=== PATIENT | female | born 1995 | race American Indian/Alaskan Native ===

== ENCOUNTER 2017-09-25 12:11 | Emergency (ER) | payer OTHER ==
[2017-09-25 12:22] VITALS: BP 133/77; PULSE 67; TEMP 97.8; BMI 28.1
--- NOTE | 2017-09-25 13:42 | PDOC ---
History of Present Illness - General Chief Complaint: Cold Symptoms Stated Complaint: COLD SYMPTOMS Time Seen by Provider: 09/25/17 13:24 History Source: Patient Exam Limitations: No Limitations - History of Present Illness Initial Comments: 09/25/17 13:32 c/o cough and stuffy nose for 2 days no fever no abd pain or vomiting. Pt took aleve this AM. Pt asking for a work note for calling out sick today. Past History - Past Medical History Allergies/Adverse Reactions: Allergies Allergy/AdvReac Type Severity Reaction Status Date / Time No Known Allergies Allergy Verified 09/25/17 12:18 Home Medications: Ambulatory Orders NK [No Known Home Medication] 09/25/17 COPD: No Other medical history: NONE - Suicide/Smoking/Psychosocial Hx Smoking History: Never smoked Information on smoking cessation initiated: No Hx Alcohol Use: No Drug/Substance Use Hx: No Substance Use Type: None Respiratory Specific PMHX - Complaint Specific PMHX Angina: No Bronchitis: No Pneumonia: No Pulmonary Embolus: No TB (Tuberculosis): No Review of Systems - Review of Systems Able to Perform ROS?: Yes Is the patient limited Somali proficient: No Constitutional: No: Symptoms Reported HEENTM: Yes: Nose Congestion Respiratory: Yes: Cough. No: Wheezing, Productive cough *Physical Exam - Vital Signs Last Vital Signs Temp Pulse Resp BP Pulse Ox 97.8 F 67 18 133/77 100 09/25/17 12:19 09/25/17 12:19 09/25/17 12:19 09/25/17 12:19 09/25/17 12:19 - Physical Exam General Appearance: Yes: Nourished, Appropriately Dressed HEENT: positive: EOMI, BENTLEY, Normal ENT Inspection, TMs Normal, Pharynx Normal Neck: positive: Supple. negative: Tender Respiratory/Chest: positive: Lungs Clear, Normal Breath Sounds. negative: Decreased Breath Sounds, Paradoxal Breathing, Crackles, Rales, Stridor, Wheezing , Hyperresonant, Dullness, Plerual Rub Cardiovascular: positive: Regular Rhythm, Regular Rate Gastrointestinal/Abdominal: positive: Normal Bowel Sounds, Soft. negative: Tender Musculoskeletal: positive: Normal Inspection Extremity: positive: Normal Capillary Refill, Normal Inspection, Normal Range of Motion. negative: Tender Integumentary: positive: Normal Color, Dry, Warm. negative: Rash, Swelling Neurologic: positive: Fully Oriented, Alert, Normal Mood/Affect, Normal Response , Motor Strength 5 Medical Decision Making - Medical Decision Making 09/25/17 13:42 cc: nasal congestion and cough no fever no chills non toxic will discharge home with supportive care *DC/Admit/Observation/Transfer Diagnosis at time of Disposition: Common cold virus - Discharge Dispostion Disposition: HOME Condition at time of disposition: Good - Referrals Referrals: Shayna Rodriguez MD [Primary Care Provider] - - Patient Instructions Printed Discharge Instructions: DI for Common Cold Additional Instructions: drink pleanty of water to stay well hydrated get a cool mist humidifier to use in your bedroom get over the counter Airborne or any vitamin C and Zinc supplememnt also get over the counter nasal spray for congestion such as lizbeth-synephrine or Afrin and use as directed on the bottle return to ER for any worsening symptoms - Post Discharge Activity Forms/Work/School Notes: Back to School
== END 2017-09-25 13:52 | disposition home or self-care (01) ==
LOC: JERFT 12:11
DX: J00 Acute nasopharyngitis [common cold] (principal)
CPT/HCPCS: 99281-25

== ENCOUNTER 2017-11-28 21:09 | Emergency (ER) | payer OTHER ==
[2017-11-28 22:57] VITALS: TEMP 98.7; BMI 27.3
--- NOTE | 2017-11-29 01:31 | PDOC ---
History of Present Illness - General History Source: Patient Exam Limitations: No Limitations - History of Present Illness Initial Comments: 11/29/17 01:32 The patient is a 22 year old female with no significant past medical history who presents to the ED complaining of 4-5 days of subjective fever, nonproductive fever, and nasal congestion. Fever is improved today. No abdominal pain, vomiting, or diarrhea. No chest pain or sore throat. No wheezing. Several family members at home are sick with similar symptoms. <Cheyenne Castaneda - Last Filed: 11/29/17 01:32> <María Elena Delgado - Last Filed: 11/29/17 01:44> - General Chief Complaint: Cold Symptoms Stated Complaint: FEVER Time Seen by Provider: 11/29/17 00:36 Past History <Cheyenne Castaneda - Last Filed: 11/29/17 01:32> - Past Medical History COPD: No - Suicide/Smoking/Psychosocial Hx Smoking History: Never smoked Have you smoked in the past 12 months: No Information on smoking cessation initiated: No Hx Alcohol Use: No Drug/Substance Use Hx: No Substance Use Type: None <María Elena Delgado - Last Filed: 11/29/17 01:44> - Past Medical History Allergies/Adverse Reactions: Allergies Allergy/AdvReac Type Severity Reaction Status Date / Time No Known Allergies Allergy Verified 09/25/17 12:18 Home Medications: Ambulatory Orders Oxymetazoline 0.05% Nasal Soln [Afrin -] 1 spray NS BID #1 spraybtl 09/25/17 Respiratory Specific PMHX - Complaint Specific PMHX Angina: No Bronchitis: No Pneumonia: No Pulmonary Embolus: No TB (Tuberculosis): No <María Elena Delgado - Last Filed: 11/29/17 01:44> Review of Systems - Review of Systems Able to Perform ROS?: Yes Comments:: 11/29/17 01:35 CONSTITUTIONAL: Present: fever (improved) Absent: no fatigue EYES: Absent: visual changes ENT: Present: nasal congestion Absent: ear pain, no sore throat CARDIOVASCULAR: Absent: chest pain, no palpitations RESPIRATORY: Present: cough Absent: no SOB GI: Absent: abdominal pain, no nausea, no vomiting, no constipation, no diarrhea GENITOURINARY: Absent: dysuria, no frequency, no hematuria MUSKULOSKELETAL: Absent: back pain, no arthralgia, no myalgia SKIN: Absent: rash NEURO: Absent: headache <Cheyenne Castaneda - Last Filed: 11/29/17 01:32> *Physical Exam - Vital Signs Last Vital Signs Temp Pulse Resp BP Pulse Ox 98.7 F 87 20 134/84 100 11/28/17 22:55 11/28/17 22:55 11/28/17 22:55 11/28/17 22:55 11/28/17 22:55 - Physical Exam Comments: 11/29/17 01:37 GENERAL: Well developed, well nourished. Awake and alert. No acute distress. HEENT: Normocephalic, atraumatic. PERRLA, EOMI. No conjunctival pallor. Sclera are non- icteric. Moist mucous membranes. Oropharynx is clear. NECK: Supple. Full ROM. No JVD. Carotid pulses 2+ and symmetric, without bruits. No thyromegaly. No lymphadenopathy. CARDIOVASCULAR: Regular rate and rhythm. No murmurs, rubs, or gallops. Distal pulses are 2+ and symmetric. PULMONARY: No evidence of respiratory distress. Lungs clear to auscultation bilaterally. No wheezing, rales or rhonchi. ABDOMINAL: Soft. Non-tender. Non-distended. No rebound or guarding. MUSCULOSKELETAL Normal range of motion at all joints. No bony deformities or tenderness. No CVA tenderness. EXTREMITIES: No cyanosis. No clubbing. No edema. No calf tenderness. SKIN: Warm and dry. Normal capillary refill. No rashes. No jaundice. PSYCHIATRIC: Cooperative. Good eye contact. Appropriate mood and affect. <Cheyenne Castaneda - Last Filed: 11/29/17 01:32> - Vital Signs Last Vital Signs Temp Pulse Resp BP Pulse Ox 98.7 F 87 20 134/84 100 11/28/17 22:55 11/28/17 22:55 11/28/17 22:55 11/28/17 22:55 11/28/17 22:55 <María Elena Delgado - Last Filed: 11/29/17 01:44> Medical Decision Making - Medical Decision Making 11/29/17 01:41 22-year-old female presents because she's had some coughing, nasal congestion and fever since Monday. Patient is well-nourished, well-developed 22-year-old female in no acute respiratory distress. Lungs are clear to auscultation bilaterally. She has no focal neural deficits. She was stable vital signs. Since she has been sick for more than 72 hours. She will be NOT be tested for influenza because Tamiflu would not be efficacious at this time and she has no breathing difficulties <María Elena Delgado - Last Filed: 11/29/17 01:44> *DC/Admit/Observation/Transfer - Attestations Scribe Attestion: 11/29/17 01:37 Documentation prepared by Cheyenne Castaneda, acting as medical coding instructor for María Elena Delgado MD. <Cheyenne Castaneda - Last Filed: 11/29/17 01:32> <María Elena Delgado - Last Filed: 11/29/17 01:44> Diagnosis at time of Disposition: Cough, Nasal congestion with rhinorrhea - Discharge Dispostion Disposition: HOME Condition at time of disposition: Stable - Referrals Referrals: Shayna Rodriguez MD [Primary Care Provider] - - Patient Instructions Printed Discharge Instructions: DI for Viral Upper Respiratory Infection -- Adult, DI for Common Cold Additional Instructions: Please try to stay hydrated,take tylenol for fever or muscle aches and rest Return if you have any difficulties breathing - Post Discharge Activity
[2017-11-29 02:21] VITALS: BP 115/65; PULSE 85
== END 2017-11-29 02:21 | disposition home or self-care (01) ==
LOC: JER 21:09
DX: R09.81 Nasal congestion (principal); R05 Cough; J34.89 Other specified disorders of nose and nasal sinuses
CPT/HCPCS: 99281-25

== ENCOUNTER 2018-04-11 22:39 | Emergency (ER) | payer OTHER ==
[2018-04-11 22:52] VITALS: BP 115/69; PULSE 70; TEMP 98.3; BMI 28.1
[2018-04-11] MEDS ORDERED: guaiFENesin/CODEINE 10 ML UNIT-DOSE CUPS PO ONE (23:33)
[2018-04-11] MEDS ORDERED: ALBUTEROL SO4 0.083% IH SOL 2.5 MG/3 ML VIAL.NEB. NEB ONE ×2 (23:33→23:39)
[2018-04-11] MEDS ORDERED: AMOX TR/POT CLAV 875MG/125MG TABLETS (FP) PO ONE (23:33)
--- NOTE | 2018-04-11 23:33 | PDOC ---
History of Present Illness - General History Source: Patient Exam Limitations: No Limitations - History of Present Illness Initial Comments: 04/11/18 23:49 The patient is a 22 year old female with no reported past medical history presents to the emergency department with cold symptoms since a week and half. 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 The patient reports associated symptoms of stuffy nose, cough, and closed left ear, no relief with Tylenol or Ibuprofen. The patient reports initially she had pain to the left ear (now resolved) states now shes unable to clear it. The patient states she doesn't have a strong immune system. The patient reports last week she was having ear and throat pain while swallowing, states its resolved. Denies fever, chills, or headache. Denies nausea or vomiting. Denies diarrhea or constipation. Denies dysuria, hematuria, frequency or urgency to urinate. Allergies: NKDA Social history: None reported Surgical history: None reported PCP: Dr. Shayna Rodriguez. <Ana Rhodes - Last Filed: 04/11/18 23:49> <Sarahi Stallings - Last Filed: 04/12/18 18:50> - General Chief Complaint: Cold Symptoms Stated Complaint: COLD SYMPTOMS Time Seen by Provider: 04/11/18 23:23 Past History <Ana Rhodes - Last Filed: 04/11/18 23:49> - Past Medical History COPD: No - Suicide/Smoking/Psychosocial Hx Smoking History: Never smoked Have you smoked in the past 12 months: No Information on smoking cessation initiated: No Hx Alcohol Use: No Drug/Substance Use Hx: No Substance Use Type: None <Sarahi Stallings - Last Filed: 04/12/18 18:50> - Past Medical History Allergies/Adverse Reactions: Allergies Allergy/AdvReac Type Severity Reaction Status Date / Time No Known Allergies Allergy Verified 04/11/18 22:42 Home Medications: Ambulatory Orders Oxymetazoline 0.05% Nasal Soln [Afrin -] 1 spray NS BID #1 spraybtl 09/25/17 Amoxicillin/Potassium Clav [Augmentin 875-125 Tablet] 1 each PO BID #14 tablet 04/11/18 Guaifenesin AC [Robitussin AC -] 5 ml PO QID PRN #60 ml MDD 20 mL 05/30/18 Review of Systems - Review of Systems Able to Perform ROS?: Yes Comments:: 04/11/18 23:50 GENERAL/CONSTITUTIONAL: No fever or chills. No weakness. HEAD, EYES, EARS, NOSE AND THROAT: (+) "closed left ear" and Stuffy nose. No change in vision. No ear pain or discharge. No sore throat. CARDIOVASCULAR: No chest pain or shortness of breath. RESPIRATORY: (+) cough No wheezing, or hemoptysis. GASTROINTESTINAL: No nausea, vomiting, diarrhea or constipation. GENITOURINARY: No dysuria, frequency, or change in urination. MUSCULOSKELETAL: No joint or muscle swelling or pain. No neck or back pain. SKIN: No rash NEUROLOGIC: No headache, vertigo, loss of consciousness, or change in strength/ sensation. ENDOCRINE: No increased thirst. No abnormal weight change. HEMATOLOGIC/LYMPHATIC: No anemia, easy bleeding, or history of blood clots. ALLERGIC/IMMUNOLOGIC: No hives or skin allergy. <Ana Rhodes - Last Filed: 04/11/18 23:49> *Physical Exam - Vital Signs Last Vital Signs Temp Pulse Resp BP Pulse Ox 98.3 F 70 18 115/69 100 04/11/18 22:49 04/11/18 22:49 04/11/18 22:49 04/11/18 22:49 04/11/18 22:49 <Ana Rhodes - Last Filed: 04/11/18 23:49> - Vital Signs Last Vital Signs Temp Pulse Resp BP Pulse Ox 98.3 F 70 18 115/69 100 04/11/18 22:49 04/11/18 22:49 04/11/18 22:49 04/11/18 22:49 04/11/18 22:49 - Physical Exam Comments: GENERAL: Awake, alert, and fully oriented, in no acute distress HEAD: No signs of trauma EYES: PERRLA, EOMI, sclera anicteric, conjunctiva clear ENT: Auricles normal inspection, hearing grossly normal, nares patent, oropharynx clear without exudates. Moist mucosa. +Mild erythema to the L TM, 2 o 'clock position. No effusion. NECK: Normal ROM, supple, no lymphadenopathy, JVD, or masses LUNGS: Good air entry B/L, deep inspiration leads to hacking cough. HEART: Regular rate and rhythm, normal S1 and S2, no murmurs, rubs or gallops ABDOMEN: Soft, nontender, normoactive bowel sounds. No guarding, no rebound. No masses EXTREMITIES: Normal range of motion, no edema. No clubbing or cyanosis. No cords, erythema, or tenderness NEUROLOGICAL: Cranial nerves II through XII grossly intact. Normal speech, normal gait SKIN: Warm, Dry, normal turgor, no rashes or lesions noted. <Sarahi Stallings - Last Filed: 04/12/18 18:50> ED Treatment Course - Medications Given in the ED: ED Medications Discontinued Medications Generic Name Dose Route Start Last Admin Trade Name Freq PRN Reason Stop Dose Admin Albuterol Sulfate 1 amp 04/11/18 23:33 04/11/18 23:42 Ventolin 0.083% Nebulizer Soln - NEB 04/11/18 23:34 1 amp ONCE ONE Administration Amoxicillin/Clavulanate Potassium 1 tab 04/11/18 23:33 04/11/18 23:42 Augmentin - 875mg Tablet PO 04/11/18 23:34 1 tab ONCE ONE Administration Guaifenesin/Codeine Phosphate 10 ml 04/11/18 23:33 04/11/18 23:42 Robitussin Ac - PO 04/11/18 23:34 10 ml ONCE ONE Administration <Ana Rhodes - Last Filed: 04/11/18 23:49> Medical Decision Making - Medical Decision Making 04/12/18 00:13 Pt reports improvement after neb. Stable for DC home. <Sarahi Stallings - Last Filed: 04/12/18 18:50> *DC/Admit/Observation/Transfer - Attestations Scribe Attestion: 04/11/18 23:52 Documentation prepared by Ana Rhodes, acting as certified medical aide for Sarahi Stallings MD. <Ana Rhodes - Last Filed: 04/11/18 23:49> - Discharge Dispostion Decision to Admit order: No <Sarahi Stallings - Last Filed: 04/12/18 18:50> Diagnosis at time of Disposition: Viral syndrome, Ear infection - Discharge Dispostion Disposition: HOME Condition at time of disposition: Improved - Prescriptions Prescriptions: Amoxicillin/Potassium Clav [Augmentin 875-125 Tablet] 1 each PO BID #14 tablet Guaifenesin AC [Robitussin AC -] 5 ml PO QID PRN #60 ml MDD 20 mL PRN Reason: Cough - Referrals Referrals: Shayna Rodriguez MD [Primary Care Provider] - - Patient Instructions Printed Discharge Instructions: Middle Ear Infection, DI for Viral Syndrome - Post Discharge Activity
[2018-04-11] MEDS ORDERED: guaiFENesin 200 MG/10 ML 10 ML UNIT-DOSE CUPS ONE ×2 (23:39)
[2018-04-11] MEDS ORDERED: AMOX TR/POT CLAV 875MG/125MG TABLETS (FP) ONE (23:39)
== END 2018-04-12 00:26 | disposition home or self-care (01) ==
LOC: JER 22:39
PROC: 3E0F7GC Introduction of Other Therapeutic Substance into Respiratory Tract, Via Natural or Artificial Opening (ICD-10-PCS; principal; 2018-04-11)
DX: B34.9 Viral infection, unspecified (principal); H66.92 Otitis media, unspecified, left ear
CPT/HCPCS: 99281-25